=== PATIENT | male | born 1950 | race Caucasian/White ===

== ENCOUNTER → 2017-04-09 | Outpatient (CLI) | payer MEDICARE, OTHER ==
[~2017-04-09] MED LIST: ASPI325T PO; GLIP5 PO; HYDR25TA35 PO; LISI-360 PO; METF-324 PO; METO50TA11 PO; PIOG30 PO; VICT18IN SQ; VITA100020 SL; VITA400T14 PO
--- NOTE | 2017-04-09 11:57 | RADRPT ---
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 INDICATIONS : Not provided. However, patient has a history of distal right SFA atherectomy in Oct. TECHNIQUE: Five-station segmental examination of the lower extremities was performed pre and post extercise. Pulsed-cuff waveform tracings and pressures were recorded. Ankle-brachial indices and toe-brachial indices were calculated. PRESSURES (mmHg): Pre Exercise: Brachial (arm): Right 148 Left 138 Ankle: Right 115 Left 94 GARETH: Right 0.78 Left 0.64 TBI: Right 0.00 Left 0.18 Post Exercise: Brachial (arm): Right 192 Ankle: Right 44 (0.23 GARETH) Left 47 (0.24 GARETH) PULSED CUFF WAVEFORMS: Erratic waveforms with decreased amplitude at the ankle and significantly decreased amplitude in the left toes. CONCLUSION: 1. Findings consistent with moderate to severe bilateral peripheral arterial disease,. Consider CTA e xamination for further evaluation. Skyler Sandoval MD on April 09, 2017 at 11:49 Board Certified Radiologist. This report was verified electronically.
== END ==
LOC: HCAV 10:06
DX: I73.9 Peripheral vascular disease, unspecified (principal)
CPT/HCPCS: 93924